=== PATIENT | female | born 1980 | race Caucasian/White ===

== ENCOUNTER 2019-02-01 10:45 | Emergency (ER) | payer OTHER ==
[2019-02-01 10:54] VITALS: PULSE 68; BMI 23.6
[2019-02-01 12:19] LABS: BASO % 0.6 % (0-2.0); EOS % 0.6 % (0-4.5); HEMATOCRIT 34.7 % (32.4-45.2); HEMOGLOBIN 11.8 GM/dL (10.7-15.3); LYMPH % 23.4 % (8-40); MCH 31.3 pg (25.7-33.7); MEAN CELL VOLUME 92.2 fl (80-96); MEAN PLT VOLUME 9.9 fl (7.5-11.1); MONO % 6.8 % (3.8-10.2); NEUT % 68.6 % (42.8-82.8); PLATELET COUNT 243 K/MM3 (134-434); RBC 3.76 M/mm3 (3.60-5.2); RDW 13.8 % (11.6-15.6); WHITE BLOOD COUNT 7.2 K/mm3 (4.0-10.0)
[2019-02-01 13:06] LABS: ALBUMIN 3.8 g/dl (3.4-5.0); BILIRUBIN,TOTAL 0.3 mg/dL (0.2-1); BLOOD UREA NITROGEN 9.7 mg/dL (7-18); CALCIUM 8.8 mg/dL (8.5-10.1); CREATININE 0.7 mg/dL (0.55-1.3); POTASSIUM 4.1 mmol/L (3.5-5.1); TOT PROT 7.3 g/dl (6.4-8.2)
--- NOTE | 2019-02-01 14:20 | PDOC ---
Documentation entered by Oliverio Riddle SCRIBE, acting as scribe for Symone Chang MD. Symone Chang MD: This documentation has been prepared by the Venkatesh samuels Nirvannie, SCRIBE, under my direction and personally reviewed by me in its entirety. I confirm that the documentation accurately reflects all work, treatment, procedures, and medical decision making performed by me. History of Present Illness - General Chief Complaint: Vaginal Bleeding Stated Complaint: 6 WKS PRG/VAGINAL BLEED Time Seen by Provider: 02/01/19 10:59 History Source: Patient Exam Limitations: No Limitations - History of Present Illness Initial Comments: 02/01/19 13:53 The patient is a 38 year old 6 weeks female A0, with a significant past medical history of migraines, who presents to the emergency department with 3 days of progressively vaginal bleeding with mild left-sided pelvic pain. She notes changing 3 pads today (not soaked fully). As per patient, she was evaluated in [facility] ER 3 days ago at which time she had an ultrasound. Ultrasound depicted a corpus luteal cyst in the left ovary with trace free fluid around the left ovary. Patient notes going to the [facility] today who told her to go to [facility] for follow up USS. She denies recent fevers, chills, headache or dizziness. She denies recent nausea, vomit, diarrhea or constipation. She denies recent dysuria, frequency, urgency or hematuria. She denies recent chest pain or shortness of breath. Allergies: NKDA Surgical History: . Primary Care Physician: Dr. Gardner Past History - Past Medical History Allergies/Adverse Reactions: Allergies Allergy/AdvReac Type Severity Reaction Status Date / Time No Known Allergies Allergy Verified 02/01/19 10:49 Home Medications: Ambulatory Orders NK [No Known Home Medication] 02/01/19 COPD: No Other medical history: MIGRAINES - Immunization History Immunization Up to Date: Yes - Psycho Social/Smoking Cessation Hx Smoking History: Never smoked Have you smoked in the past 12 months: No Information on smoking cessation initiated: No Hx Alcohol Use: No Drug/Substance Use Hx: No Review of Systems - Review of Systems Able to Perform ROS?: Yes Comments:: 02/01/19 13:53 CONSTITUTIONAL: No fever, no chills, no fatigue EYES: No visual changes ENT: No ear pain, no sore throat CARDIOVASCULAR: No chest pain, no palpitations RESPIRATORY: No cough, no SOB GI: No abdominal pain, no nausea, no vomiting, no constipation, no diarrhea GENITOURINARY: +Vaginal bleeding. No dysuria, no frequency, no hematuria MUSKULOSKELETAL: No back pain, no joint pain, no myalgias SKIN: No rash NEURO: No headache All Other Systems: Reviewed and Negative *Physical Exam - Vital Signs Last Vital Signs Temp Pulse Resp BP Pulse Ox 98.3 F 68 17 101/57 L 100 02/01/19 10:51 02/01/19 10:51 02/01/19 10:51 02/01/19 10:51 02/01/19 10:51 - Physical Exam 02/01/19 13:53 GENERAL: The patient is in no acute distress. HEAD: Normal with no signs of trauma. EYES: PERRLA, EOMI, sclera anicteric, conjunctiva clear. ENT: Ears normal, nares patent, oropharynx clear without exudates. Moist mucous membranes. NECK: Normal range of motion, supple without lymphadenopathy, JVD, or masses. LUNGS: Breath sounds equal, clear to auscultation bilaterally. No wheezes, and no crackles. HEART:Regular rate and rhythm, normal S1 and S2 without murmur, rub or gallop. ABDOMEN: Soft, normoactive bowel sounds. No guarding, no rebound. No masses palpable. PELVIC: +Mild left-sided pelvic discomfort. External genitalia normal without lesions. +Blood in the vault. Cervix is long and closed. No cervical motion tenderness. Uterus is nontender and normal in size. Adnexa are nontender and without masses. EXTREMITIES: Normal range of motion, no edema. No clubbing or cyanosis. No erythema, or tenderness. NEUROLOGICAL: Cranial nerves II through XII grossly intact. Normal speech. No focal neurological deficits. MUSCULOSKELETAL: Back non-tender to palpation, no CVA tenderness SKIN: Warm, Dry, normal turgor, no rashes or lesions noted. ED Treatment Course - LABORATORY CBC & Chemistry Diagram: 02/01/19 11:50 02/01/19 11:50 - ADDITIONAL ORDERS Additional order review: 02/01/19 11:50 RBC 3.76 MCV 92.2 MCHC 34.0 RDW 13.8 MPV 9.9 Neutrophils % 68.6 Lymphocytes % 23.4 Monocytes % 6.8 Eosinophils % 0.6 Basophils % 0.6 - RADIOLOGY Radiology Studies Ordered: Category Date Time Status TRANSVAGINAL US PREG [US] Stat Ultrasound 02/01/19 11:00 Taken Medical Decision Making - Medical Decision Making 02/01/19 12:46 Ms. Lester is a 38-year-old G2, P1 LMP November 2018 presenting with vaginal bleeding and left lower quadrant pain. Patient symptoms began 3 days ago. She was seen at an outside hospital where ultrasound did not show an IUP as well as fluid around the left ovary (I do not know this patient's beta from that day) Patient was asked to follow-up with [facility] today. As she was following up they told her to come to the emergency department Patient states she used 3 pads today, does not describe them as saturated. No lightheadedness no dizziness Laboratory Tests 02/01/19 11:50 WBC 7.2 Hgb 11.8 Hct 34.7 Plt Count 243 02/01/19 13:10 Laboratory Tests 02/01/19 11:50 BUN 9.7 Creatinine 0.7 02/01/19 13:28 Laboratory Tests 02/01/19 11:50 Beta HCG, Quant 2012.0 02/01/19 13:28 Laboratory Tests 02/01/19 11:50 Blood Type A POSITIVE 02/01/19 13:[address] Mitchell He asked me to call Dr Tracey because he has already left the hospital Call placed to Dr Tracey service, on hold 15 minutes 02/01/19 14:[address] Tracey cell phone Case reviewed with Dr. Tracey I have read her this patient's ultrasound report She states pt can be DISCHARGED TO HOME to follow up in clinic in 2 days SHE BELIEVES THIS IS A MISCARIAGE NOT AN ECTOPIC despite the mass found on the left ovary because (in a miscarriage, pt uterus has blood in the vault in an ectopic, no blood in vault) I have reviewed this plan with Dr Tolentino Per ED director, plan appropriate Will discharge to home 02/01/19 15:04 Call placed to [facility] [id number] This means BHCG is decreasing We have called the clinic to make an appointment for her I discussed the physical exam findings, ancillary test results and final diagnoses with the patient. I answered all of the patient's questions. The patient was satisfied with the care received and felt comfortable with the discharge plan and treatment plan. The patient will F/u with behavioral health counselor in [address] Tracey request. Pt will return to the Emergency Department with any new , persistent or worsening symptoms. The patient understands that we could not exclude the possibility of an ectopic based on her emergency department workup. She understands that it is extremely important that she sees her physician within 24-48 hours for a repeat visit, including repeat blood work. Clinical impression: Ectopic versus threatened AB, initial presentation Discharge - Discharge Information Problems reviewed: Yes Clinical Impression/Diagnosis: Vaginal bleeding during , Threatened in first trimester Condition: Stable Disposition: HOME - Admission No - Follow up/Referral Referrals: Zeeshan Gardner MD [Primary Care Provider] - - Patient Discharge Instructions Patient Printed Discharge Instructions: DI for Threatened , DI for Vaginal Bleeding During Additional Instructions: Ms. Lester Yusef por venir al departamento de emergencias hoy. Le dieron copias de buzz laboratorios: veronica tipo A +, [facility] DEBE hacer un seguimiento en [facility] para jaimee al gineclogo el VIERNES 13 DE DICIEMBRE a las 9:30 a.m. Hemos hecho ace orlin para ti Si malloy aumentado el dolor, el aturdimiento, la debilidad, el dolor en el pecho, la fatiga o si est saturando 2 almohadillas por hora x 2 horas, POR FAVOR VUELVA AL ER PARA VERNOS EN EL ER Thank you for coming into the emergency department today. You were given copies of your labs -blood type A+, [facility] You MUST follow up at [facility] to see the sterilization tech on WednesdayFEBRUARY 03 at 9:30 AM We have made an appointment for you If you have increased pain, lightheadedness, weakness, chest pain, fatigue, or are saturating 2 pads per hour x 2 hours PLEASE COME BACK TO THE ER TO SEE US IN THE ER - Post Discharge Activity Work/Back to School Note: Back to Work
[2019-02-01 14:52] VITALS: BP 100/52; TEMP 97.7
[2019-02-01 15:13] LABS: EPI CELLS 0.2 /HPF (0-5/HPF); HYALINE CASTS 0 /lpf (0-8); PH,URINE 6.5 (5.0-8.0); URINE APPEARANCE CLEAR; URINE BACTERIA 1025.9 /hpf (NEGATIVE); URINE BILIRUBIN NEGATIVE (NEGATIVE); URINE COLOR YELLOW; URINE GLUCOSE (UA) NEGATIVE (NEGATIVE); URINE KETONE NEGATIVE (NEGATIVE); URINE LEUK ESTERASE NEGATIVE (NEGATIVE); URINE NITRITE NEGATIVE (NEGATIVE); URINE PROTEIN NEGATIVE (NEGATIVE); URINE RBC 1 /hpf (0-4); URINE UROBILINOGEN 0.2 mg/dL (0.2-1.0); URINE WBC 0 /hpf (0-5)
== END 2019-02-01 15:20 | disposition home or self-care (01) ==
LOC: JER 10:45
DX: O26.891 Other specified pregnancy related conditions, first trimester (principal); Z3A.01 Less than 8 weeks gestation of pregnancy; O20.0 Threatened abortion; G43.909 Migraine, unspecified, not intractable, without status migrainosus
CPT/HCPCS: 36415; 76817-TC; 80053; 81003; 84702; 85025; 86850; 86900; 86901; 87086; 87186; 99283-25

== ENCOUNTER 2020-07-10 12:25 | Inpatient (IN) | payer OTHER ==
[2020-07-10] MEDS ORDERED: CITRIC ACID/SODIUM CITRATE 30 ML UNIT-DOSE CUP PO ONE ×2 (12:59)
[2020-07-10] MEDS ORDERED: ELECTROLYTE-148 SOLN 1,000 ML IV SCH (13:00)
[2020-07-10] MEDS: ELECTROLYTE-148 SOLN 1,000 ML IV SCH ×2 (13:00→14:14)
[2020-07-10 13:18] VITALS: BMI 33.0
[2020-07-10] MEDS ORDERED: OXYTOCIN 20 UNITS in 0.9% NS 20 UNIT/1,000 ML INFUS.BAG IV ONE (13:52)
[2020-07-10] MEDS ORDERED: morphine SULFATE/PF 0.5 MG/ML (2cc Syringe - QUVA) ONE (14:23)
[2020-07-10] MEDS ORDERED: PHENYLEPHRINE HCL 10 MG/1 ML SINGLE DOSE VIAL ONE (14:23)
[2020-07-10] MEDS ORDERED: KETAMINE HCL 500 MG/10 ML VIAL ONE (14:43)
[2020-07-10] MEDS ORDERED: MIDAZOLAM HCL 2 MG/2 ML SINGLE DOSE VIAL ONE (14:53)
[2020-07-10] MEDS ORDERED: IBUPROFEN 800 MG/8 ML IJ IVPB PRN (15:30)
[2020-07-10] MEDS ORDERED: METHYLERGONOVINE MALEATE 0.2 MG/1 ML AMP IM PRN (15:30)
[2020-07-10] MEDS ORDERED: ACETAMINOPHEN 325 MG TABLET (FP) PO PRN (15:30)
[2020-07-10] MEDS ORDERED: oxyCODONE HCL 5 MG TABLET PO PRN (15:30)
[2020-07-10] MEDS ORDERED: OXYTOCIN 20 UNITS in 0.9% NS 20 UNIT/1,000 ML INFUS.BAG IV SCH (15:30)
[2020-07-10] MEDS ORDERED: SENNOSIDES/DOCUSATE COMBO (SENNA PLUS) TABLET (UD) PO PRN (15:30)
[2020-07-10] MEDS ORDERED: IBUPROFEN 600 MG TABLET (FP) PO PRN (15:36)
[2020-07-10] MEDS ORDERED: ONDANSETRON 4 MG/2 ML VIAL IVPUSH PRN (15:36)
[2020-07-10] MEDS ORDERED: IBUPROFEN 800 MG/8 ML IJ IVPB ONE (16:01)
[2020-07-10] MEDS: FERROUS SO4 325 MG TABLET (FP) PO SCH (18:53)
[2020-07-11] MEDS: SIMETHICONE 80 MG TAB.CHEW (FP) PO PRN ×2 (08:02→17:42)
[2020-07-11] MEDS: FERROUS SO4 325 MG TABLET (FP) PO SCH ×2 (08:02→17:04)
[2020-07-11] MEDS: ACETAMINOPHEN 325 MG TABLET (FP) PO PRN (08:02)
[2020-07-11] MEDS: IBUPROFEN 600 MG TABLET (FP) PO PRN ×2 (08:03→17:42)
[2020-07-11 08:50] LABS: BASO % 0.3 % (0-2.0); EOS % 0.2 % (0-4.5); HEMOGLOBIN 11.1 GM/dL (10.7-15.3); LYMPH % 9.9 % (8-40); MCH 32.1 pg (25.7-33.7); MCHC 33.7 g/dl (32.0-36.0); MEAN CELL VOLUME 95.2 fl (80-96); MEAN PLT VOLUME 10.6 fl (7.5-11.1); MONO % 5.3 % (3.8-10.2); NEUT % 84.3 % (42.8-82.8); PLATELET COUNT 151 K/MM3 (134-434); RBC 3.46 M/mm3 (3.60-5.2); RDW 14.4 % (11.6-15.6); WHITE BLOOD COUNT 12.4 K/mm3 (4.0-10.0)
[2020-07-11] MEDS ORDERED: DIPHTH,PERTUSS(ACELL),TET 0.5 ML DISP.SYRIN IM ONE (10:00)
[2020-07-11] MEDS: PRENATAL VITAMINS W/ FOLIC ACID TABLET (FP) PO SCH (10:15)
[2020-07-11] MEDS ORDERED: BISACODYL 10 MG SUPP.RECT RC PRN (15:30)
[2020-07-12] MEDS: IBUPROFEN 600 MG TABLET (FP) PO PRN ×2 (10:52→22:28)
[2020-07-12] MEDS: PRENATAL VITAMINS W/ FOLIC ACID TABLET (FP) PO SCH (10:52)
[2020-07-12] MEDS: FERROUS SO4 325 MG TABLET (FP) PO SCH ×2 (10:52→21:07)
[2020-07-12] MEDS: SIMETHICONE 80 MG TAB.CHEW (FP) PO PRN (22:27)
[2020-07-12] MEDS: ACETAMINOPHEN 325 MG TABLET (FP) PO PRN (22:27)
[2020-07-13 07:43] LABS: BASO % 0.3 % (0-2.0); EOS % 1.1 % (0-4.5); HEMATOCRIT 33.4 % (32.4-45.2); HEMOGLOBIN 11.4 GM/dL (10.7-15.3); LYMPH % 16.1 % (8-40); MCH 32.8 pg (25.7-33.7); MCHC 34.2 g/dl (32.0-36.0); MEAN CELL VOLUME 95.9 fl (80-96); MEAN PLT VOLUME 10.9 fl (7.5-11.1); MONO % 5.2 % (3.8-10.2); NEUT % 77.3 % (42.8-82.8); PLATELET COUNT 178 K/MM3 (134-434); RBC 3.49 M/mm3 (3.60-5.2); RDW 14.2 % (11.6-15.6); WHITE BLOOD COUNT 10.2 K/mm3 (4.0-10.0)
[2020-07-13] MEDS: FERROUS SO4 325 MG TABLET (FP) PO SCH (09:53)
[2020-07-13] MEDS: PRENATAL VITAMINS W/ FOLIC ACID TABLET (FP) PO SCH (09:53)
[2020-07-13 10:36] VITALS: BP 106/58; PULSE 72; TEMP 98.2
== END 2020-07-13 12:55 | disposition home or self-care (01) | DRG 540 ==
LOC: JLDR 12:25 → J3W 17:47
PROVIDERS: ADMIT Obstetrics & Gynecology; ATTEND Obstetrics & Gynecology
PROC: 10D00Z1 Extraction of Products of Conception, Low, Open Approach (ICD-10-PCS; principal; 2020-07-10)
PROC: 0UL70ZZ Occlusion of Bilateral Fallopian Tubes, Open Approach (ICD-10-PCS; 2020-07-10)
DX: O34.211 Maternal care for low transverse scar from previous cesarean delivery (principal); O69.81X0 Labor and delivery complicated by cord around neck, without compression, not applicable or unspecified; Z30.2 Encounter for sterilization; Z3A.39 39 weeks gestation of pregnancy; Z37.0 Single live birth
CPT/HCPCS: 36415; 85025; 88302-TC; 88307-TC; 90715